=== PATIENT | female | born 1930 | race Asian ===

== ENCOUNTER → 2016-12-18 | Outpatient (CLI) | payer OTHER ==
[~2016-12-18] MED LIST: ACAR50TA11 PO; CLOP75 PO; ESOM20CA31 PO; GLIM4 PO; LEVO5TAB13 PO; METF500T7 PO; MONT10TA21 PO; NITR100C PO; SITA100 PO; SITA1TAB6 PO
== END | disposition home or self-care (01) ==
LOC: RADPV 12:43
PROVIDERS: ATTEND Internal Medicine
DX: M16.0 Bilateral primary osteoarthritis of hip (principal)
CPT/HCPCS: 72170

== ENCOUNTER → 2017-03-02 | Outpatient (CLI) | payer OTHER, MEDICAID | END | disposition home or self-care (01) | LOC: RADPV 09:58 | PROVIDERS: ATTEND Internal Medicine | DX: M65.341 Trigger finger, right ring finger (principal); M81.0 Age-related osteoporosis without current pathological fracture ==

== ENCOUNTER 2017-08-15 06:27 | Emergency (ER) | payer OTHER, MEDICAID ==
[~2017-08-15] VITALS: Ht 154.9 cm; Wt 59.1 kg
[2017-08-15 06:43] LABS: GLUCOSE,POINT OF CARE 147 MG/DL (70-110)
[2017-08-15] MEDS ORDERED: INSU100V12 SQ (06:44)
[2017-08-15] MEDS ORDERED: INSNOV SQ (06:44)
[2017-08-15] MEDS ORDERED: EXEN2VIA SQ (06:44)
[2017-08-15] MEDS ORDERED: KETOROLAC TROMETHAMINE 30 MG/ML VIAL IM ONE (08:30)
[2017-08-15 10:05] VITALS: BP 142/70
== END 2017-08-15 10:08 | disposition home or self-care (01) ==
LOC: EMS 06:28
DX: M13.861 Other specified arthritis, right knee (principal); I10 Essential (primary) hypertension; E11.9 Type 2 diabetes mellitus without complications; E78.00 Pure hypercholesterolemia, unspecified; K21.9 Gastro-esophageal reflux disease without esophagitis; Z79.899 Other long term (current) drug therapy; Z79.4 Long term (current) use of insulin
CPT/HCPCS: 29530; 82962; 96372; 99283; J1885

== ENCOUNTER → 2018-10-19 | Outpatient (CLI) | payer MEDICARE, MEDICAID ==
[~2018-10-19] MED LIST changes: +BARIUM SULFATE 0.1% SUSPENSION 450 ML BOTTLE ONE; -CLOP75 PO; +CLOP75TA3 PO; +EXEN2VIA SQ; +INSNOV SQ; +INSU100V12 SQ; +IOVERSOL 350 MG/ML 100 ML VIAL ONE; -METF500T7 PO; -NITR100C PO; +SODIUM CHLORIDE 0.9% 100 ML ONE
== END | disposition home or self-care (01) ==
LOC: RADMN 09:36
PROVIDERS: ATTEND Internal Medicine
DX: R19.00 Intra-abdominal and pelvic swelling, mass and lump, unspecified site (principal); N94.89 Other specified conditions associated with female genital organs and menstrual cycle
CPT/HCPCS: 74177; J7050; Q9967